=== PATIENT | male | born 1940 | race Caucasian/White ===

== ENCOUNTER 2024-04-15 16:25 | Emergency (ER) | payer MEDICARE ==
[2024-04-15] MEDS: Ketorolac 30 MG/ML SDV IM ONE (18:05)
== END 2024-04-15 18:38 | disposition home or self-care (01) ==
LOC: JP.ED 16:25
DX: S63.501A Unspecified sprain of right wrist, initial encounter (principal); I10 Essential (primary) hypertension; E78.00 Pure hypercholesterolemia, unspecified; I25.10 Atherosclerotic heart disease of native coronary artery without angina pectoris; Z79.899 Other long term (current) drug therapy; Z91.030 Bee allergy status; W10.9XXA Fall (on) (from) unspecified stairs and steps, initial encounter
CPT/HCPCS: 73110; 96372; 99283; J1885